=== PATIENT | female | born 1985 | race Two or more races ===

== ENCOUNTER 2021-11-14 12:47 | Emergency (ER) | payer MEDICAID, OTHER ==
[~2021-11-14] VITALS: Ht 160 cm; Wt 113.4 kg
[2021-11-14 12:58] VITALS: BP 117/66
[2021-11-14] MEDS ORDERED: IPRATROPIUM BROM 0.5 MG/2.5ML INH SOL NEB ONE (13:00)
[2021-11-14] MEDS ORDERED: ALBUTEROL SULF 2.5 MG/0.5ML(0.5%) NEB SOLN NEB ONE (13:00)
[2021-11-14] MEDS ORDERED: ALBUTEROL SULF 2.5 MG/0.5ML(0.5%) NEB SOLN ONE (13:02)
[2021-11-14] MEDS ORDERED: IPRATROPIUM BROM 0.5 MG/2.5ML INH SOL ONE (13:03)
== END 2021-11-14 16:10 | disposition left against medical advice (07) ==
LOC: ER 12:47
DX: R06.02 Shortness of breath (principal); F41.9 Anxiety disorder, unspecified; Z53.21 Procedure and treatment not carried out due to patient leaving prior to being seen by health care provider
CPT/HCPCS: 94640; J7644

== ENCOUNTER 2023-01-07 20:43 | Emergency (ER) | payer MEDICAID ==
[~2023-01-07] VITALS: Ht 157.5 cm; Wt 113.0 kg
[2023-01-07] MEDS ORDERED: IPRATROPIUM BROM 0.5 MG/2.5ML INH SOL NEB ONE (21:15)
[2023-01-07] MEDS ORDERED: ALBUTEROL SULF 2.5 MG/0.5ML(0.5%) NEB SOLN NEB ONE (21:15)
[2023-01-07 21:40] LABS: Basophils # (auto) 0.1 10 ^3/uL (0-0.2); Basophils % (auto) 0.5 % (0.0-2.0); Eosinophils # (auto) 0.6 10 ^3/uL (0-0.8); Eosinophils % (auto) 5.4 % (0.0-7.0); Hematocrit 43.3 % (36.0-46.0); Hemoglobin 14.3 g/dL (12.2-16.2); Lymphocytes # (auto) 2.3 10 ^3/uL (0.4-5.4); Lymphocytes % (auto) 18.9 % (10.0-50.0); Mean Corpuscular Hemoglobin 29.2 pg (28.0-32.0); Mean Corpuscular Volume 88.5 fL (80.0-100.0); Monocytes # (auto) 0.7 10 ^3/uL (0-1.3); Monocytes % (auto) 5.6 % (0.0-12.0); Neutrophils # (auto) 8.3 10 ^3/uL (1.6-8.6); Neutrophils % (auto) 69.6 % (37.0-80.0); Nucleated Red Blood Cells % 0.3 %; Red Blood Cells 4.89 10^6/uL (4.0-5.20); Red Cell Distribution Width 13.5 % (11.8-14.3); White Blood Cell 11.9 10^3/uL (4.4-10.8)
[2023-01-07 21:51] LABS: Partial Thromboplastin Time 26.4 sec (24.6-33.4)
[2023-01-07 21:59] LABS: Albumin 3.2 g/dL (3.4-5.0); Calcium 8.3 mg/dL (8.5-10.1); Magnesium 2.4 mg/dL (1.6-2.6); Potassium 3.4 mmol/L (3.5-5.1)
[2023-01-07 22:04] LABS: BUN/Creatinine Ratio 12.5 (10.0-20.0); Bilirubin, Total 0.8 mg/dL (0.2-1.0); Total Protein 7.1 g/dL (6.4-8.2)
[2023-01-07] MEDS ORDERED: DexAMETHasone SOD PHOS 10MG/1ML VIAL INJ IM ONE (23:15)
[2023-01-08 01:45] VITALS: BP 96/65
[2023-01-08] MEDS ORDERED: PRED20TA2 PO (01:58)
[2023-01-08] MEDS ORDERED: ALBU1.257 IN (01:58)
== END 2023-01-08 02:19 | disposition home or self-care (01) ==
LOC: ER 20:43
DX: J06.9 Acute upper respiratory infection, unspecified (principal); B97.89 Other viral agents as the cause of diseases classified elsewhere; J45.901 Unspecified asthma with (acute) exacerbation; R07.89 Other chest pain
CPT/HCPCS: 36415; 71045; 80053; 83735; 83880; 84484; 85025; 85610; 85730; 94640; 96372; 99284; J1100; J7644

== ENCOUNTER 2023-06-14 11:29 | Emergency (ER) | payer MEDICAID ==
[~2023-06-14] VITALS: Ht 160 cm; Wt 131.4 kg
[~2023-06-14 11:29] MED LIST: ALBU1.258 IN; PRED20TA2 PO
[2023-06-14] MEDS ORDERED: ONDANSETRON HCL 4 MG/2 ML VIAL IV ONE (12:15)
[2023-06-14] MEDS ORDERED: SODIUM CHLORIDE 0.9% 1,000 ML IVB ONE (12:15)
[2023-06-14] MEDS ORDERED: MORPHINE SULFATE 4 MG/ML SYR/VIAL IV ONE (12:15)
[2023-06-14 12:40] LABS: Urine Bacteria FEW /hpf (None Seen); Urine Blood Negative /uL (Negative); Urine Clarity HAZY (Clear); Urine Color Yellow (Yellow); Urine Mucus FEW (None Seen); Urine Protein, UAD 1+ (Negative); Urine Specific Gravity 1.026 (1.001-1.035); Urine Urobilinogen Normal (Negative); Urine WBC 52 /hpf (0 - 5); Urine pH 5.5 (5.0-8.0)
[2023-06-14 13:16] LABS: Basophils # (auto) 0.1 10 ^3/uL (0-0.2); Basophils % (auto) 0.9 % (0.0-2.0); Eosinophils # (auto) 0.3 10 ^3/uL (0-0.8); Eosinophils % (auto) 3.1 % (0.0-7.0); Hematocrit 50.8 % (36.0-46.0); Hemoglobin 17.1 g/dL (12.2-16.2); Lymphocytes # (auto) 3.3 10 ^3/uL (0.4-5.4); Lymphocytes % (auto) 31.9 % (10.0-50.0); Mean Corpuscular Hemoglobin 29.9 pg (28.0-32.0); Mean Corpuscular Hgb Conc. 33.6 g/dL (32.0-36.0); Mean Corpuscular Volume 88.8 fL (80.0-100.0); Monocytes # (auto) 0.6 10 ^3/uL (0-1.3); Monocytes % (auto) 5.6 % (0.0-12.0); Neutrophils % (auto) 58.5 % (37.0-80.0); Nucleated Red Blood Cells % 0.9 %; Red Blood Cells 5.72 10^6/uL (4.0-5.20); White Blood Cell 10.2 10^3/uL (4.4-10.8)
[2023-06-14 13:57] LABS: Alanine Aminotransferase 104 U/L (7-40); Albumin 4.5 g/dL (3.2-4.8); Alkaline Phosphatase 57 U/L (46-116); Anion Gap 8 (5-15); Aspartate Aminotransferase 55 U/L (13-40); BUN/Creatinine Ratio 18.7 (10.0-20.0); Bilirubin, Total 0.9 mg/dL (0.2-1.0); Blood Urea Nitrogen 14 mg/dL (9-23); Calcium 9.6 mg/dL (8.7-10.4); Carbon Dioxide 22 mmol/L (20-30); Chloride 104 mmol/L (98-107); Glucose 95 mg/dL (74-106); Lipase 33 U/L (12-53); Potassium 4.7 mmol/L (3.5-5.1); Sodium 134 mmol/L (136-145); Total Protein 7.9 g/dL (5.7-8.2)
[2023-06-14] MEDS ORDERED: CIPR-173 PO (15:23)
[2023-06-14] MEDS ORDERED: HYDR-4795 PO (15:23)
[2023-06-14 18:50] VITALS: BP 110/76; PULSE 84; RESP 20; TEMP 97.6; O2SAT 98
== END 2023-06-14 19:15 | disposition home or self-care (01) ==
LOC: ER 11:29
DX: N39.0 Urinary tract infection, site not specified (principal); R10.2 Pelvic and perineal pain; J45.909 Unspecified asthma, uncomplicated; F17.210 Nicotine dependence, cigarettes, uncomplicated; Z79.1 Long term (current) use of non-steroidal anti-inflammatories (NSAID); Z79.899 Other long term (current) drug therapy
CPT/HCPCS: 36415; 74176; 80053; 81001; 83690; 84702; 85025

== ENCOUNTER 2023-08-14 16:31 | Inpatient (IN) | payer MEDICAID ==
[~2023-08-14] VITALS: Ht 162.6 cm; Wt 137.5 kg
[~2023-08-14 16:31] MED LIST changes: +CIPR-173 PO; +HYDR-4795 PO
[2023-08-14] MEDS ORDERED: methylPREDNISolone SOD SUCC 125 MG/2 ML VL IM ONE (16:45)
[2023-08-14] MEDS ORDERED: IPRATROPIUM BROM 0.5 MG/2.5ML INH SOL NEB ONE ×3 (16:45→22:15)
[2023-08-14] MEDS ORDERED: ALBUTEROL SULF 2.5 MG/0.5ML(0.5%) NEB SOLN NEB ONE ×2 (16:45→19:00)
[2023-08-14] MEDS ORDERED: ALBUTEROL SULF 2.5 MG/0.5ML(0.5%) NEB SOLN ONE ×2 (16:51→19:10)
[2023-08-14] MEDS ORDERED: IPRATROPIUM BROM 0.5 MG/2.5ML INH SOL ONE ×2 (16:51→22:08)
[2023-08-14] MEDS ORDERED: methylPREDNISolone SOD SUCC 125 MG/2 ML VL ONE (16:55)
[2023-08-14 17:10] VITALS: PULSE 94; RESP 24; O2SAT 100
[2023-08-14 17:21] LABS: Basophils # (auto) 0.1 10 ^3/uL (0-0.2); Basophils % (auto) 0.7 % (0.0-2.0); Eosinophils # (auto) 0.1 10 ^3/uL (0-0.8); Eosinophils % (auto) 1.4 % (0.0-7.0); Hematocrit 42.7 % (36.0-46.0); Hemoglobin 13.8 g/dL (12.2-16.2); Lymphocytes # (auto) 0.6 10 ^3/uL (0.4-5.4); Lymphocytes % (auto) 8.5 % (10.0-50.0); Mean Corpuscular Hemoglobin 29.2 pg (28.0-32.0); Mean Corpuscular Hgb Conc. 32.4 g/dL (32.0-36.0); Mean Corpuscular Volume 90.1 fL (80.0-100.0); Monocytes # (auto) 0.6 10 ^3/uL (0-1.3); Monocytes % (auto) 8.5 % (0.0-12.0); Neutrophils # (auto) 6.1 10 ^3/uL (1.6-8.6); Neutrophils % (auto) 80.9 % (37.0-80.0); Nucleated Red Blood Cells % 0.1 %; Red Blood Cells 4.73 10^6/uL (4.0-5.20); White Blood Cell 7.6 10^3/uL (4.4-10.8)
[2023-08-14 17:42] LABS: Alanine Aminotransferase 42 U/L (7-40); Albumin 4.1 g/dL (3.2-4.8); Alkaline Phosphatase 48 U/L (46-116); Anion Gap 6 (5-15); Aspartate Aminotransferase 28 U/L (13-40); Bilirubin, Total 0.8 mg/dL (0.2-1.0); Calcium 8.4 mg/dL (8.7-10.4); Carbon Dioxide 25 mmol/L (20-30); Chloride 106 mmol/L (98-107); Glucose 104 mg/dL (74-106); Potassium 3.5 mmol/L (3.5-5.1); Sodium 137 mmol/L (136-145)
[2023-08-14 18:19] LABS: BUN/Creatinine Ratio 8.2 (10.0-20.0); Blood Urea Nitrogen < 5 mg/dL (9-23)
[2023-08-14 20:00] VITALS: PULSE 80; RESP 24; O2SAT 100
[2023-08-14] MEDS ORDERED: TERBUTALINE SULFATE 1 MG/ML 1ML VIAL SC ONE ×2 (20:45→22:00)
[2023-08-14] MEDS ORDERED: MAGNESIUM SULFATE 1GM/100ML 200 ML IV ONE (21:36)
[2023-08-14] MEDS: MAGNESIUM SULFATE 1GM/100ML 100 ML IV SCH ×2 (21:39→23:17)
[2023-08-14 22:30] VITALS: BP 116/80; PULSE 82; O2SAT 98
[2023-08-14] MEDS ORDERED: AZITHROMYCIN 500MG/ 250ML 250 ML IV ONE (22:30)
[2023-08-14 22:47] VITALS: BP 113/72; PULSE 81; RESP 28; O2SAT 94
[2023-08-14] MEDS ORDERED: KETAMINE 50mg/ML 1ml syringe IV ONE ×2 (23:15→23:45)
[2023-08-15] VITALS (9 sets, daily range): BP systolic 120; BP diastolic 78; PULSE 85–96; RESP 20–28; O2SAT 94–99
[2023-08-15] MEDS ORDERED: AZITHROMYCIN 500MG/ 250ML 250 ML IV ONE (00:17)
[2023-08-15 00:23] LABS: Base Excess -4.9 mmol/L (-2.0-2.0)
[2023-08-15 03:43] LABS: COVID19 ANTIGEN SOFIA FIA NEGATIVE (NEGATIVE); Rapid Influenza A Negative (Negative); Rapid Influenza B Negative (Negative)
[2023-08-15] MEDS ORDERED: ALBUTEROL SULF 2.5 MG/0.5ML(0.5%) NEB SOLN NEB PRN (07:00)
[2023-08-15] MEDS ORDERED: ONDANSETRON HCL 4 MG/2 ML VIAL IV PRN ×2 (07:00→11:45)
[2023-08-15] MEDS ORDERED: ACETAMINOPHEN 325 MG TAB PO PRN (07:00)
[2023-08-15] MEDS ORDERED: NITROGLYCERIN 0.4 MG SL TAB SL PRN (07:00)
[2023-08-15] MEDS ORDERED: MORPHINE SULFATE INJ 2 MG/ml SYRG IV PRN ×2 (07:00→11:45)
[2023-08-15] MEDS ORDERED: IPRATROPIUM BROM 0.5 MG/2.5ML INH SOL NEB PRN (07:00)
[2023-08-15] MEDS: methylPREDNISolone SOD SUCC 40 MG/ML VL IV SCH ×2 (10:32→22:02)
[2023-08-15] MEDS ORDERED: FUROSEMIDE 40 MG/4 ML VIAL IV ONE (11:45)
[2023-08-15] MEDS ORDERED: DOCUSATE SOD 100 MG CAP PO PRN (11:45)
[2023-08-15] MEDS ORDERED: HYDROcodone-ACET 5/325MG TAB PO PRN (11:45)
[2023-08-15] MEDS ORDERED: LORazepam 2MG/ML-1ML VIAL IV ONE (11:45)
[2023-08-15] MEDS ORDERED: ACETAMINOPHEN 500 MG TAB PO PRN (11:45)
[2023-08-15] MEDS ORDERED: IPRATROPIUM BROM 0.5 MG/2.5ML INH SOL ONE (12:53)
[2023-08-15] MEDS ORDERED: ALBUTEROL SULF 2.5 MG/0.5ML(0.5%) NEB SOLN ONE (12:53)
[2023-08-15] MEDS: IPRATROPIUM BROM 0.5 MG/2.5ML INH SOL NEB SCH ×2 (12:56→18:31)
[2023-08-15] MEDS: ALBUTEROL SULF 2.5 MG/0.5ML(0.5%) NEB SOLN NEB SCH ×2 (12:56→18:31)
[2023-08-15] MEDS: BUDESONIDE (INHALATION) 0.5 MG/2 ML NEB NEB SCH (18:31)
[2023-08-15 19:47] LABS: Urine Bacteria FEW /hpf (None Seen); Urine Blood Negative /uL (Negative); Urine Clarity HAZY (Clear); Urine Color Colorless (Yellow); Urine Mucus FEW (None Seen); Urine Protein, UAD Negative (Negative); Urine Specific Gravity 1.011 (1.001-1.035); Urine Urobilinogen Normal (Negative); Urine WBC <1 /hpf (0 - 5)
[2023-08-15] MEDS ORDERED: methylPREDNISolone SOD SUCC 40 MG/ML VL ONE (22:01)
[2023-08-16] VITALS (11 sets, daily range): BP systolic 113–128; BP diastolic 62–78; PULSE 64–95; RESP 18–24; TEMP 97.8–98.5; O2SAT 15–99
[2023-08-16 06:24] LABS: Basophils # (auto) 0 10 ^3/uL (0-0.2); Basophils % (auto) 0.3 % (0.0-2.0); Eosinophils # (auto) 0 10 ^3/uL (0-0.8); Hematocrit 41.1 % (36.0-46.0); Hemoglobin 13.5 g/dL (12.2-16.2); Lymphocytes % (auto) 7.6 % (10.0-50.0); Mean Corpuscular Hemoglobin 29.4 pg (28.0-32.0); Mean Corpuscular Hgb Conc. 32.7 g/dL (32.0-36.0); Mean Corpuscular Volume 89.7 fL (80.0-100.0); Monocytes # (auto) 0.6 10 ^3/uL (0-1.3); Monocytes % (auto) 4.5 % (0.0-12.0); Neutrophils # (auto) 11.1 10 ^3/uL (1.6-8.6); Neutrophils % (auto) 87.6 % (37.0-80.0); Nucleated Red Blood Cells % 0.1 %; Red Blood Cells 4.58 10^6/uL (4.0-5.20); Red Cell Distribution Width 14.1 % (11.8-14.3); White Blood Cell 12.6 10^3/uL (4.4-10.8)
[2023-08-16] MEDS ORDERED: IPRATROPIUM BROM 0.5 MG/2.5ML INH SOL ONE (06:37)
[2023-08-16] MEDS ORDERED: ALBUTEROL SULF 2.5 MG/0.5ML(0.5%) NEB SOLN ONE (06:37)
[2023-08-16 06:39] LABS: Alanine Aminotransferase 32 U/L (7-40); Albumin 4.1 g/dL (3.2-4.8); Alkaline Phosphatase 45 U/L (46-116); Anion Gap 8 (5-15); Aspartate Aminotransferase 24 U/L (13-40); BUN/Creatinine Ratio 14.8 (10.0-20.0); Blood Urea Nitrogen 9 mg/dL (9-23); Calcium 8.9 mg/dL (8.5-10.1); Carbon Dioxide 27 mmol/L (20-30); Chloride 102 mmol/L (98-107); Glucose 131 mg/dL (74-106); Potassium 4.7 mmol/L (3.5-5.1); Sodium 137 mmol/L (136-145)
[2023-08-16 06:40] LABS: Bilirubin, Total 0.4 mg/dL (0.2-1.0); Total Protein 7.1 g/dL (5.7-8.2)
[2023-08-16] MEDS: IPRATROPIUM BROM 0.5 MG/2.5ML INH SOL NEB SCH ×3 (06:46→17:55)
[2023-08-16] MEDS: BUDESONIDE (INHALATION) 0.5 MG/2 ML NEB NEB SCH ×2 (06:47→17:55)
[2023-08-16] MEDS: ALBUTEROL SULF 2.5 MG/0.5ML(0.5%) NEB SOLN NEB SCH ×3 (06:47→17:55)
[2023-08-16] MEDS ORDERED: IOHEXOL 350 MG/ML 100ML IJ ONE (09:34)
[2023-08-16] MEDS ORDERED: HYDROcodone-ACET 5/325MG TAB ONE (10:07)
[2023-08-16] MEDS: methylPREDNISolone SOD SUCC 40 MG/ML VL IV SCH ×2 (10:36→21:43)
[2023-08-16] MEDS: NICOTINE 21MG/24 HR TOPICAL PATCH TD SCH (10:36)
[2023-08-16] MEDS: ALPRAZolam 0.25 MG TAB PO PRN (13:56)
[2023-08-16] MEDS: cefTRIAXone 1GM/50ML D5W 50 ML IV SCH (14:54)
[2023-08-16] MEDS: AZITHROMYCIN 500MG/ 250ML 250 ML IV SCH (16:20)
[2023-08-16] MEDS: TEMAZEPAM 15 MG CAP PO PRN (21:44)
[2023-08-17] VITALS (16 sets, daily range): BP systolic 101–130; BP diastolic 61–81; PULSE 63–104; RESP 17–20; TEMP 97.3–99; O2SAT 93–99
[2023-08-17] MEDS: IPRATROPIUM BROM 0.5 MG/2.5ML INH SOL NEB SCH ×3 (06:39→18:14)
[2023-08-17] MEDS: ALBUTEROL SULF 2.5 MG/0.5ML(0.5%) NEB SOLN NEB SCH ×3 (06:39→18:14)
[2023-08-17] MEDS: BUDESONIDE (INHALATION) 0.5 MG/2 ML NEB NEB SCH ×2 (06:39→18:14)
[2023-08-17 07:15] LABS: Basophils # (auto) 0 10 ^3/uL (0-0.2); Basophils % (auto) 0.3 % (0.0-2.0); Eosinophils # (auto) 0 10 ^3/uL (0-0.8); Hemoglobin 13.3 g/dL (12.2-16.2); Lymphocytes % (auto) 7.8 % (10.0-50.0); Mean Corpuscular Hemoglobin 29.1 pg (28.0-32.0); Mean Corpuscular Hgb Conc. 32.4 g/dL (32.0-36.0); Mean Corpuscular Volume 89.8 fL (80.0-100.0); Monocytes # (auto) 0.8 10 ^3/uL (0-1.3); Monocytes % (auto) 6.7 % (0.0-12.0); Neutrophils # (auto) 10.5 10 ^3/uL (1.6-8.6); Neutrophils % (auto) 85.2 % (37.0-80.0); Nucleated Red Blood Cells % 0.1 %; Red Blood Cells 4.57 10^6/uL (4.0-5.20); White Blood Cell 12.3 10^3/uL (4.4-10.8)
[2023-08-17 07:34] LABS: Anion Gap 6 (5-15); Carbon Dioxide 30 mmol/L (20-30); Chloride 100 mmol/L (98-107); Potassium 4.8 mmol/L (3.5-5.1); Sodium 136 mmol/L (136-145)
[2023-08-17 07:35] LABS: Calcium 8.8 mg/dL (8.5-10.1)
[2023-08-17 07:40] LABS: BUN/Creatinine Ratio 25.5 (10.0-20.0); Blood Urea Nitrogen 14 mg/dL (9-23); Glucose 120 mg/dL (74-106)
[2023-08-17] MEDS: cefTRIAXone 1GM/50ML D5W 50 ML IV SCH (08:59)
[2023-08-17] MEDS: methylPREDNISolone SOD SUCC 40 MG/ML VL IV SCH ×2 (08:59→22:26)
[2023-08-17] MEDS: NICOTINE 21MG/24 HR TOPICAL PATCH TD SCH (09:00)
[2023-08-17] MEDS: AZITHROMYCIN 500MG/ 250ML 250 ML IV SCH (10:09)
[2023-08-17] MEDS: ALPRAZolam 0.25 MG TAB PO PRN (14:22)
[2023-08-17] MEDS: TEMAZEPAM 15 MG CAP PO PRN (20:31)
[2023-08-18] VITALS (16 sets, daily range): BP systolic 98–142; BP diastolic 45–84; PULSE 72–97; RESP 17–21; TEMP 97.9–99; O2SAT 80–99
[2023-08-18] MEDS: ALBUTEROL SULF 2.5 MG/0.5ML(0.5%) NEB SOLN NEB SCH ×3 (06:29→18:26)
[2023-08-18] MEDS: IPRATROPIUM BROM 0.5 MG/2.5ML INH SOL NEB SCH ×3 (06:29→18:25)
[2023-08-18] MEDS: BUDESONIDE (INHALATION) 0.5 MG/2 ML NEB NEB SCH ×2 (06:29→18:24)
[2023-08-18] MEDS: cefTRIAXone 1GM/50ML D5W 50 ML IV SCH (08:35)
[2023-08-18] MEDS: methylPREDNISolone SOD SUCC 40 MG/ML VL IV SCH ×2 (08:35→21:08)
[2023-08-18] MEDS: NICOTINE 21MG/24 HR TOPICAL PATCH TD SCH (08:36)
[2023-08-18] MEDS: AZITHROMYCIN 500MG/ 250ML 250 ML IV SCH (10:37)
[2023-08-18] MEDS: TEMAZEPAM 15 MG CAP PO PRN (21:08)
[2023-08-19] VITALS (12 sets, daily range): BP systolic 108–127; BP diastolic 62–82; PULSE 57–94; RESP 18–20; TEMP 98.1–98.3; O2SAT 93–100
[2023-08-19] MEDS: ALBUTEROL SULF 2.5 MG/0.5ML(0.5%) NEB SOLN NEB SCH ×3 (07:15→18:47)
[2023-08-19] MEDS: IPRATROPIUM BROM 0.5 MG/2.5ML INH SOL NEB SCH ×3 (07:15→18:47)
[2023-08-19] MEDS: BUDESONIDE (INHALATION) 0.5 MG/2 ML NEB NEB SCH ×2 (07:16→22:26)
[2023-08-19] MEDS: cefTRIAXone 1GM/50ML D5W 50 ML IV SCH (08:56)
[2023-08-19] MEDS: NICOTINE 21MG/24 HR TOPICAL PATCH TD SCH (08:56)
[2023-08-19] MEDS: methylPREDNISolone SOD SUCC 40 MG/ML VL IV SCH ×2 (08:57→23:04)
[2023-08-19] MEDS: MULTIPLE VITAMINS W/ MINERALS TAB PO SCH (08:57)
[2023-08-19] MEDS: AZITHROMYCIN 500MG/ 250ML 250 ML IV SCH (10:06)
[2023-08-19] MEDS ORDERED: AZIT-81 PO ×2 (13:56)
[2023-08-19] MEDS ORDERED: NIC21P TOP ×2 (13:56)
[2023-08-19] MEDS ORDERED: ALBUAER3 IN ×2 (13:56)
[2023-08-19] MEDS ORDERED: LORA-655 PO ×2 (13:56)
[2023-08-19] MEDS ORDERED: METH4PAK PO ×2 (13:56)
[2023-08-19] MEDS: TEMAZEPAM 15 MG CAP PO PRN (23:11)
[2023-08-20 05:00] VITALS: BP 111/69; PULSE 66; RESP 18; TEMP 98; O2SAT 100
[2023-08-20 07:14] VITALS: PULSE 73; RESP 18; O2SAT 95
[2023-08-20] MEDS: IPRATROPIUM BROM 0.5 MG/2.5ML INH SOL NEB SCH ×2 (07:16→11:55)
[2023-08-20] MEDS: ALBUTEROL SULF 2.5 MG/0.5ML(0.5%) NEB SOLN NEB SCH ×2 (07:16→11:55)
[2023-08-20] MEDS: BUDESONIDE (INHALATION) 0.5 MG/2 ML NEB NEB SCH (07:17)
[2023-08-20 07:22] VITALS: PULSE 73; RESP 18; O2SAT 97
[2023-08-20 08:00] VITALS: BP 118/79; PULSE 69; PULSE 77; RESP 18; TEMP 98.6; O2SAT 95
[2023-08-20] MEDS: cefTRIAXone 1GM/50ML D5W 50 ML IV SCH (08:54)
[2023-08-20] MEDS: MULTIPLE VITAMINS W/ MINERALS TAB PO SCH (08:55)
[2023-08-20] MEDS: AZITHROMYCIN 500MG/ 250ML 250 ML IV SCH (08:55)
[2023-08-20] MEDS: methylPREDNISolone SOD SUCC 40 MG/ML VL IV SCH (08:55)
[2023-08-20] MEDS: NICOTINE 21MG/24 HR TOPICAL PATCH TD SCH (08:55)
[2023-08-20] MEDS ORDERED: NICO21DI37 TD (10:19)
[2023-08-20] MEDS ORDERED: AZITTAB PO (10:19)
[2023-08-20] MEDS ORDERED: ALBUAER3 IN (10:19)
[2023-08-20] MEDS ORDERED: METH4PAK PO (10:19)
[2023-08-20 12:36] VITALS: BP 108/82; PULSE 82; RESP 17; TEMP 98.6; O2SAT 92
== END 2023-08-20 15:09 | disposition home or self-care (01) | DRG 141 ==
LOC: ER 16:31 → TELE 08-15 06:57 → TELE-CENTR 08-16 13:10
PROVIDERS: ADMIT Nurse Practitioner; ATTEND Nurse Practitioner Acute Care
PROC: 5A09357 Assistance with Respiratory Ventilation, Less than 24 Consecutive Hours, Continuous Positive Airway Pressure (ICD-10-PCS; principal; 2023-08-14)
PROC: 5A0935A Assistance with Respiratory Ventilation, Less than 24 Consecutive Hours, High Flow/Velocity Cannula (ICD-10-PCS; 2023-08-15)
DX: J45.901 Unspecified asthma with (acute) exacerbation (principal); J96.21 Acute and chronic respiratory failure with hypoxia; J15.69 Pneumonia due to other Gram-negative bacteria; Z68.43 Body mass index [BMI] 50.0-59.9, adult; J15.9 Unspecified bacterial pneumonia; Z20.822 Contact with and (suspected) exposure to COVID-19; E66.01 Morbid (severe) obesity due to excess calories; F17.210 Nicotine dependence, cigarettes, uncomplicated; Z80.9 Family history of malignant neoplasm, unspecified; Z83.3 Family history of diabetes mellitus
CPT/HCPCS: 36415; 36600; 71045; 71275; 80048; 80053; 81001; 82805; 83880; 84702; 85025; 85379; 87426; 87804; 93306; 94640; G0378